=== PATIENT | male | born 1990 | race African-American/Black ===

== ENCOUNTER 2018-01-30 | Emergency (ER) | payer MEDICAID | END 2018-01-30 01:50 | disposition home or self-care (01) ==

== ENCOUNTER 2018-05-11 04:38 | Emergency (ER) | payer MEDICAID ==
[2018-05-11 04:50] VITALS: BP 119/75
[2018-05-11] MEDS ORDERED: NS 1,000 ML IV ONE (05:30)
--- NOTE | 2018-05-11 05:50 | EDPHY ---
H & P Stated Complaint: COLD SX Time Seen by Provider: 05/11/18 05:23 HPI/ROS: Chief Complaint: Cough, cold symptoms HPI: 28-year-old male with recent admission for a viral syndrome is presenting this morning complaining of feeling dehydrated and having persistent cough. He has been using his halo with some improvement. No fevers or chills. No chest pain or shortness of breath. No nausea or vomiting. Patient states he feels dehydrated because he has only been drinking alcohol and has not been drinking any water or any other fluids. ROS: 10 systems were reviewed and were negative except those elements noted in the HPI. PMH: Chronic alcoholism Social History: Positive smoking, daily heavy alcohol Family History: non-contributory Physical Exam: Gen: Awake, Alert, No Distress HEENT: Nose: no rhinorrhea Eyes: PERRLA, EOMI Mouth: Moist mucosa Neck: Supple, no JVD Chest: nontender, lungs clear to auscultation Heart: S1, S2 normal, no murmur Abd: Soft, non-tender, no guarding Back: no CVA tenderness, no midline tenderness Ext: no edema, non-tender Skin: no rash Neuro: CN II-XII intact, Sensation grossly intact, Strength 5/5 in bilateral upper and lower extremities - Personal History Current Tetanus/Diphtheria Vaccine: Yes Current Tetanus Diphtheria and Acellular Pertussis (TDAP): Yes - Medical/Surgical History Hx Asthma: No Hx Chronic Respiratory Disease: No Hx Diabetes: No Hx Cardiac Disease: No Hx Renal Disease: No Hx Cirrhosis: No Hx Alcoholism: Yes Hx HIV/AIDS: No Hx Splenectomy or Spleen Trauma: No Other PMH: none , etoh use , smoker-everyday - Social History Smoking Status: Heavy smoker Constitutional: Initial Vital Signs Temperature (C) 36.6 C 05/11/18 04:45 Heart Rate 112 H 05/11/18 04:45 Respiratory Rate 18 05/11/18 04:45 Blood Pressure 119/75 05/11/18 04:45 O2 Sat (%) 93 05/11/18 04:45 O2 Delivery Mode Room Air Allergies/Adverse Reactions: No Known Allergies Allergy (Verified 05/08/18 13:34) Home Medications: Medication Instructions Recorded NK [No Known Home Meds] 05/06/18 Medical Decision Making ED Course/Re-evaluation: Patient is refusing x-ray and IV fluids or any other treatments at this time. Patient states he is here just because he "wants a place to sleep while he valentine up." Patient states that he does not want any further treatment or evaluation. I have offered him IV fluids, chest x-ray and further evaluation. He continues to refuse. He will therefore be discharged. He is not clinically intoxicated and he does have decision-making capacity. Departure - Departure Disposition: Home, Routine, Self-Care Clinical Impression: Dehydration Condition: Good Instructions: Dehydration (ED) Additional Instructions: Follow up with [facility] in 2-3 days for further evaluation. Referrals: [facility],. [Clinic] - As per Instructions
== END 2018-05-11 05:58 | disposition home or self-care (01) ==
DX: R05 Cough (principal); E86.0 Dehydration; F10.10 Alcohol abuse, uncomplicated; F17.200 Nicotine dependence, unspecified, uncomplicated